=== PATIENT | female | born 1940 | race Caucasian/White ===

== ENCOUNTER → 2018-06-08 | Outpatient (CLI) | payer MEDICARE, OTHER ==
--- NOTE | 2018-06-08 16:04 | RAD ---
EXAM: Chest, 2 views. HISTORY: Hypertension. Cough. COMPARISON: None. FINDINGS: Frontal and lateral views of the chest are obtained. There is no infiltrate, pleural effusion or pneumothorax. The heart is normal in size. IMPRESSION: No acute pulmonary finding. Electronically signed by: Yaz Urban MD (06/08/2018 4:00 PM) [facility]
== END | disposition home or self-care (01) ==
LOC: PMG 15:38
PROVIDERS: ATTEND Physician Assistant Medical
DX: R05 Cough (principal); I10 Essential (primary) hypertension
CPT/HCPCS: 71046

== ENCOUNTER → 2019-02-03 | Outpatient (CLI) | payer MEDICARE, OTHER ==
--- NOTE | 2019-02-03 16:06 | RAD ---
CT HEAD WO CONTRAST History: FALL, BRUISING AROUND EYES Comparison: None. Technique: Noncontrast CT imaging was performed of the head. Exposure: One or more of the following individualized dose reduction techniques were utilized for this examination: 1. Automated exposure control 2. Adjustment of the mA and/or kV according to patient size 3. Use of iterative reconstruction technique. Findings: There is some motion No convincing acute extra-axial or parenchymal hemorrhage is identified. There is no significant intra-axial mass effect, midline shift, or extra-axial fluid collection. There is scattered ill-defined low-density of the supratentorial parenchyma bilaterally. The spears-white differentiation of the major vascular territories is preserved. The ventricles, sulci, and cisterns are within normal limits in size and configuration. The mastoid air cells and the visualized paranasal sinuses are aerated. There is small right marjorie bullosa. No acute calvarial abnormality is identified. There has been lens surgery bilaterally. Impression: 1. No acute intracranial abnormality is identified. 2. Scattered ill-defined low-density of the supratentorial parenchyma bilaterally is more commonly due to chronic microvascular ischemic disease in a patient this age. Electronically signed by: Tobi Guerrero MD (02/03/2019 4:03 PM) [id number]
--- NOTE | 2019-02-03 16:07 | RAD ---
Five-view cervical spine series Clinical indications: Fall. Neck pain. FINDINGS: Grade 1 anterolisthesis of C3-4 is seen. There is mild degenerative disc space narrowing and endplate spurring at this level. There is moderate degenerative disc space narrowing and endplate spurring at C4-5 and C6-7. There is severe degenerative disc space narrowing and prominent degenerative endplate spurring at C5-6. There is narrowing of the right neural foramina at C5-6 and C6-7 and C7-T1 and the left neural foramina at C4-5 and C5-6 and C6-7 and C7-T1.. No acute fracture or discitis or lytic process or prevertebral soft tissue swelling is evident. IMPRESSION: Degenerative cervical spondylosis. Electronically signed by: Scot Sandoval MD (02/03/2019 4:04 PM) [id number]
== END | disposition home or self-care (01) ==
LOC: PMG 15:30
PROVIDERS: ATTEND Physician Assistant
DX: S16.1XXA Strain of muscle, fascia and tendon at neck level, initial encounter (principal); S00.83XA Contusion of other part of head, initial encounter; M47.812 Spondylosis without myelopathy or radiculopathy, cervical region; M48.02 Spinal stenosis, cervical region; W19.XXXA Unspecified fall, initial encounter; Y93.89 Activity, other specified; Y92.89 Other specified places as the place of occurrence of the external cause; Y99.8 Other external cause status
CPT/HCPCS: 70450; 72050

== ENCOUNTER → 2019-10-10 | Outpatient (CLI) | payer MEDICARE, OTHER ==
--- NOTE | 2019-10-10 16:23 | RAD ---
EXAM: Chest, 2 views. HISTORY: Cough and congestion. COMPARISON: 06/08/2018 FINDINGS: 2 views of the chest are obtained. There is no infiltrate, pleural effusion or pneumothorax. There is stable mild enlargement of the cardiac silhouette. IMPRESSION: No acute pulmonary finding. Electronically signed by: Yaz Urban MD (10/10/2019 4:20 PM) [facility]
== END | disposition home or self-care (01) ==
LOC: DXRAD 15:31
PROVIDERS: ATTEND Physician Assistant Medical
DX: I51.7 Cardiomegaly (principal)
CPT/HCPCS: 71046

== ENCOUNTER → 2020-04-25 | Outpatient (CLI) | payer MEDICARE, OTHER ==
--- NOTE | 2020-04-25 09:26 | RAD ---
Examination: CT ABDOMEN PELVIS WO CONTRAST History: Reason: VAGINAL BLEEDING PELVIC PAIN AFTER LIFTING FOR 3 MONTHS / Spl. Instructions: / History: Comparison/Correlation: 10/08/2009 CT abdomen and pelvis without contrast Findings: Axial images of the abdomen and pelvis were obtained without contrast. Sagittal and coronal reformatted images were provided. Visualized lung bases are clear. Mild diffuse fatty infiltration of the liver is present. Spleen, pancreas and adrenal glands, and gallbladder fossa are unremarkable. Right renal cyst at the posterior aspect measures 1.1 cm in diameter. Anteriorly located left renal cyst measuring 1 cm in diameter is present. No follow-up of these cysts are acquired. No radiopaque collecting system calculi or collecting system obstruction. Diverticulosis of the colon is present. No enlarged abdominal or pelvic lymph nodes. No bowel obstruction or extraluminal gas. Urinary bladder is unremarkable. Hysterectomy noted. No loculated pelvic collections. Severe disc space narrowing throughout the lumbar spine is present. Bony encroachment on the neural foramina bilaterally at L3-4 and L4-5 noted. Impression: Diverticulosis. No acute inflammatory process or suspicious mass lesion. PQRS Compliance Statement: One or more of the following individualized dose reduction techniques were utilized for this examination: 1. Automated exposure control 2. Adjustment of the mA and/or kV according to patient size 3. Use of iterative reconstruction technique Electronically signed by: Hussein Moss MD (04/25/2020 9:23 AM) [id number]
== END ==
LOC: CT 08:35
PROVIDERS: ATTEND Physician Assistant Medical
DX: K57.30 Diverticulosis of large intestine without perforation or abscess without bleeding (principal); N28.1 Cyst of kidney, acquired; K76.0 Fatty (change of) liver, not elsewhere classified; M48.061 Spinal stenosis, lumbar region without neurogenic claudication
CPT/HCPCS: 74176

== ENCOUNTER → 2021-10-07 | Outpatient (CLI) | payer MEDICARE, OTHER ==
--- NOTE | 2021-10-07 13:40 | RAD ---
EXAM: Chest, 2 views. HISTORY: Pneumonia. Cough. COMPARISON: None. FINDINGS: 2 views of chest are obtained. There is no infiltrate, pleural effusion or pneumothorax. Th e heart is normal in size. IMPRESSION: No acute pulmonary finding. Electronically signed by: Yaz Urban MD (10/07/2021 1:37 PM) [id number]
== END ==
LOC: RAD 12:54
PROVIDERS: ATTEND Nurse Practitioner Family
DX: J18.9 Pneumonia, unspecified organism (principal)
CPT/HCPCS: 71046

== ENCOUNTER → 2021-12-20 | Outpatient (CLI) | payer MEDICARE, OTHER ==
--- NOTE | 2021-12-20 17:21 | RAD ---
PA and lateral chest. HISTORY: Cough, fever PA and lateral views the chest were compared with a study from October 07, 2021. Heart is normal in size. There is no effusion. There are no confluent infiltrates. There's been no change from the prior study. IMPRESSION: 1. No acute infiltrates. Electronically signed by: Sav Swann MD (12/20/2021 5:19 PM) [facility]
== END ==
LOC: RAD 14:39
PROVIDERS: ATTEND Physician Assistant Medical
DX: R05.9 Cough, unspecified (principal)
CPT/HCPCS: 71046

== ENCOUNTER → 2022-01-21 | Outpatient (CLI) | payer MEDICARE, OTHER ==
--- NOTE | 2022-01-21 13:37 | RAD ---
Examination: CT chest without contrast HISTORY: History of recurring pneumonia, cough for several months COMPARISON: None TECHNIQUE: Axial CT images of chest were performed without contrast and coronal sagittal reformats pe rformed Exposure: One or more of the following individualized dose reduction techniques were utilized for thi s examination: 1. Automated exposure control 2. Adjustment of the mA and/or kV according to patient size 3. Use of iterative reconstruction technique FINDINGS: The central airways are patent. Mild cardiomegaly. Moderate aortic atherosclerosis. No evidence for s ignificant mediastinal lymphadenopathy.4 mm nodule left lingula of the lung. Mild bibasilar lung atel ectasis or infiltrates. The visualized noncontrasted spleen, adrenals grossly appears unremarkable. M ild decreased attenuation noted in the liver. Gallbladder is mildly distended. Partially visualized c ystic structure identified in the right kidney measuring 1.8 cm probably cyst. Moderate degenerative changes thoracic spine. IMPRESSION: 1. Mild bibasilar lung atelectasis or infiltrates. 2. 4 mm nodule left lingula of the lung. 3. Mild hepatic steatosis. Electronically signed by: Beni Martinez MD (01/21/2022 1:34 PM) [place] [id number]
== END ==
LOC: CT 11:14
PROVIDERS: ATTEND Physician Assistant Medical
DX: R91.1 Solitary pulmonary nodule (principal); I51.7 Cardiomegaly; I70.0 Atherosclerosis of aorta; K76.0 Fatty (change of) liver, not elsewhere classified; K82.8 Other specified diseases of gallbladder; N28.1 Cyst of kidney, acquired
CPT/HCPCS: 71250

== ENCOUNTER → 2022-02-11 | Outpatient (CLI) | payer MEDICARE, OTHER ==
[2022-02-11 13:08] LABS: BASO % 0 % (0-3); EOS # 0.1 x10^3/uL (0.0-0.7); EOS % 1 % (0-3); HEMATOCRIT 41.5 % (36.0-47.0); HEMOGLOBIN 13.4 g/dL (12.0-15.5); LYMPH # 2.4 x10^3/uL (1.0-4.8); LYMPH % 18 % (24-48); MEAN CORPUSCULAR HEMOGLOBIN 29 pg (25-35); MEAN CORPUSCULAR HGB CONC 32 g/dL (31-37); MEAN CORPUSCULAR VOLUME 90 fL (79-100); MONO # 1.3 x10^3/uL (0.0-1.1); MONO % 10 % (0-9); NEUT # 9.2 x10^3uL (1.8-7.7); NEUT % 71 % (31-73); PLATELET COUNT 230 x10^3/uL (140-400); RED CELL DISTRIBUTION WIDTH 14.6 % (11.5-14.5)
[2022-02-11 13:34] LABS: ALBUMIN 3.2 g/dL (3.4-5.0); ALBUMIN/GLOBULIN RATIO 0.9 (1.0-1.7); CALCIUM 8.8 mg/dL (8.5-10.1); CREATININE 1.1 mg/dL (0.6-1.0); TOTAL PROTEIN 6.8 g/dL (6.4-8.2)
[2022-02-11 13:35] LABS: GFR 47.9; POTASSIUM 3.4 mmol/L (3.5-5.1); TOTAL BILIRUBIN 0.9 mg/dL (0.2-1.0)
[2022-02-11 14:48] LABS: SEDIMENTATION RATE 59 (0-25)
== END ==
LOC: LAB 12:31
PROVIDERS: ATTEND Physician Assistant Medical
DX: R60.9 Edema, unspecified (principal); R05.8 Other specified cough; R50.9 Fever, unspecified
CPT/HCPCS: 36415; 80053; 83880; 85025; 85651